=== PATIENT | male | born 1955 | race Caucasian/White ===

== ENCOUNTER 2017-08-13 09:22 | Inpatient (IN) | payer OTHER ==
[~2017-08-13] VITALS: Ht 170.2 cm; Wt 154.0 kg
[2017-08-13 10:23] LABS: BASOPHIL % 0.2 % (0-2); PLATELET COUNT 203 x10^3mcL (130-400)
[2017-08-13 10:25] LABS: RED CELL DISTRIBUTION WIDTH 19.9 % (11.5-14.5)
[2017-08-13 10:32] LABS: rbc morphology (normal/abnorm) ABNORMAL (NORMAL)
[2017-08-13 10:33] LABS: CALCIUM 8.5 mg/dL (8.5-10.1); CARBON DIOXIDE 29.8 mmol/L (21-32); CREATININE SERUM 1.9 mg/dL (0.7-1.3); POTASSIUM SERUM 3.7 mmol/L (3.5-5.1)
[2017-08-13 10:38] LABS: BILIRUBIN TOTAL 0.4 mg/dL (0.20-1.00); TOTAL PROTEIN, SERUM 6.8 g/dL (6.4-8.2)
[2017-08-13 12:30] VITALS: BP 126/78
[2017-08-13 12:34] LABS: UA SPECIFIC GRAVITY 1.025 (1.005-1.035); microscopic required? YES; urine erythrocyte 1+ (NEGATIVE)
[2017-08-13] MEDS ORDERED: ASPIR 8181 MG PO (13:11)
[2017-08-13] MEDS ORDERED: ADV250/50 INH (13:11)
[2017-08-13] MEDS ORDERED: LIPITOR80 MG PO (13:12)
[2017-08-13] MEDS ORDERED: BUSPIRONE HCL10 MG PO (13:12)
[2017-08-13] MEDS ORDERED: CYMBALTA60 M1 PO (13:14)
[2017-08-13] MEDS ORDERED: BYDUREON2 M1 SQ (13:14)
[2017-08-13] MEDS ORDERED: DILTIAZEM HCL240 MG PO (13:14)
[2017-08-13] MEDS ORDERED: HYDRALAZINE HCL25 MG PO (13:15)
[2017-08-13] MEDS ORDERED: NEU300 PO (13:15)
[2017-08-13] MEDS ORDERED: I20 PO (13:16)
[2017-08-13] MEDS ORDERED: FUROSEMIDE20 MG PO (13:16)
[2017-08-13] MEDS ORDERED: LUMIGAN2.5 M1 OU (13:17)
[2017-08-13] MEDS ORDERED: PROAIR RES117 MCG/Ac IH (13:18)
[2017-08-13] MEDS ORDERED: MINOXIDIL2.5 MG PO (13:18)
[2017-08-13] MEDS ORDERED: PREDNISONE5 MG PO (13:18)
[2017-08-13] MEDS ORDERED: XARELTO10 M1 PO (13:20)
[2017-08-13] MEDS ORDERED: TIOTROPIUM IH (13:20)
[2017-08-13] MEDS ORDERED: XOPENEX3 ML IH (13:20)
[2017-08-13] MEDS ORDERED: RELION NOVOL100 U/ML SC (13:21)
[2017-08-13] MEDS ORDERED: HUMULIN R100 U/1 M1 IJ (13:21)
[2017-08-13 14:31] VITALS: BP 150/67
[2017-08-13 16:37] LABS: T3 TOTAL 0.65 ng/mL
[2017-08-13 16:39] LABS: MAGNESIUM 2.2 mg/dL (1.8-2.4); PHOSPHOROUS 4.2 mg/dL (2.5-4.9)
[2017-08-13 16:50] LABS: CHOLESTEROL/HDL RATIO 2.4
[2017-08-13 17:28] LABS: FREE T4 1.04 ng/dL (0.76-1.46); FREE THYROXINE INDEX 2.2 ug/dL (1.4-4.5); T4(THYROXINE) 6.2 ug/dL (4.7-13.3)
[2017-08-13 18:11] VITALS: BP 184/98
[2017-08-13 20:37] LABS: AMPHETAMINE QUAL UR NONE DETECTED (NEG <=1000)
[2017-08-13 22:14] VITALS: BP 141/78
[2017-08-14 05:56] LABS: CALCIUM 8.8 mg/dL (8.5-10.1); CREATININE SERUM 1.9 mg/dL (0.7-1.3); PHOSPHOROUS 3.7 mg/dL (2.5-4.9); POTASSIUM SERUM 4.1 mmol/L (3.5-5.1)
[2017-08-14 05:57] LABS: PLATELET COUNT 211 x10^3mcL (130-400)
[2017-08-14 06:09] VITALS: BP 153/84
[2017-08-14 06:19] LABS: BASOPHIL % 0 % (0-2); RED CELL DISTRIBUTION WIDTH 19.3 % (11.5-14.5)
[2017-08-14 09:04] VITALS: BP 140/60
[2017-08-14 13:08] VITALS: BP 152/75
[2017-08-14 17:22] VITALS: BP 152/77
[2017-08-14 18:05] VITALS: BP 152/77
== END 2017-08-14 19:04 | disposition short-term general hospital (02) | DRG 177 ==
LOC: ED 09:22 → DU 11:19
PROVIDERS: Emergency Medicine; Family Medicine
PROC: 5A09357 Assistance with Respiratory Ventilation, Less than 24 Consecutive Hours, Continuous Positive Airway Pressure (ICD-10-PCS; principal; 2017-08-13)
DX: J69.0 Pneumonitis due to inhalation of food and vomit (principal); J96.00 Acute respiratory failure, unspecified whether with hypoxia or hypercapnia; N17.0 Acute kidney failure with tubular necrosis; I50.43 Acute on chronic combined systolic (congestive) and diastolic (congestive) heart failure; E44.0 Moderate protein-calorie malnutrition; Z68.43 Body mass index [BMI] 50.0-59.9, adult; J44.1 Chronic obstructive pulmonary disease with (acute) exacerbation; Z88.8 Allergy status to other drugs, medicaments and biological substances; E11.9 Type 2 diabetes mellitus without complications; I48.91 Unspecified atrial fibrillation; E78.5 Hyperlipidemia, unspecified; I11.0 Hypertensive heart disease with heart failure; I25.10 Atherosclerotic heart disease of native coronary artery without angina pectoris; H40.9 Unspecified glaucoma; E11.40 Type 2 diabetes mellitus with diabetic neuropathy, unspecified; Z79.82 Long term (current) use of aspirin; Z82.3 Family history of stroke; Z82.49 Family history of ischemic heart disease and other diseases of the circulatory system; Z83.6 Family history of other diseases of the respiratory system; F41.9 Anxiety disorder, unspecified; E11.65 Type 2 diabetes mellitus with hyperglycemia; D64.9 Anemia, unspecified; E02 Subclinical iodine-deficiency hypothyroidism; E66.01 Morbid (severe) obesity due to excess calories
CPT/HCPCS: 36600; 82962; 83880; 84439; J1644; J1815; J1940; J1956; J2920; J2930; J3490; J7030; J7613; J7620; J7644; Q0092